=== PATIENT | male | born 1980 | race Caucasian/White ===

== ENCOUNTER 2017-04-11 14:27 | Emergency (ER) | payer MEDICAID ==
[~2017-04-11] VITALS: Ht 165.1 cm; Wt 106.5 kg
[2017-04-11 14:29] VITALS: BP 146/94
[2017-04-11] MEDS ORDERED: KETOROLAC 30 MG/1 ML ONE (14:50)
[2017-04-11] MEDS ORDERED: DIAZEPAM 5 MG TABLET ONE (14:50)
[2017-04-11] MEDS ORDERED: DIAZEPAM 5 MG TABLET PO ONE (15:00)
[2017-04-11] MEDS ORDERED: KETOROLAC 30 MG/1 ML IM ONE (15:00)
== END 2017-04-11 15:25 | disposition home or self-care (01) ==
LOC: ED 14:45
DX: S16.1XXA Strain of muscle, fascia and tendon at neck level, initial encounter (principal); X50.0XXA Overexertion from strenuous movement or load, initial encounter; Y93.89 Activity, other specified; Y92.89 Other specified places as the place of occurrence of the external cause; Y99.8 Other external cause status
CPT/HCPCS: 96372; 99283; J1885